=== PATIENT | male | born 2000 | race Two or more races ===

== ENCOUNTER 2020-03-25 17:42 | Emergency (ER) | payer OTHER ==
--- NOTE | 2020-03-25 18:28 | ER Document Report ---
ED Medical Screen (RME) - General Stated Complaint: ABDOMINAL PAIN Time Seen by Provider: 03/25/20 18:17 - HPI Notes: 03/25/20 18:25 19-year-old male presents to the emergency room today for evaluation of right inguinal pain that radiates to his testes on palpation that has been there for years became progressively worse after he had a physical exam today done at [facility]. Patient also is reporting right mid quadrant pain that constant and does radiate down to his testes. Denies any fevers chills, nausea, vomiting, diarrhea. Denies any bowel or bladder dysfunction, denies any pain with urination. Denies any penile drainage. Patient reports he has noticed the pain is become worse with lifting I have greeted and performed a rapid initial assessment of this patient. A comprehensive ED assessment and evaluation of the patient, analysis of test results and completion of the medical decision making process will be conducted by additional ED providers. PHYSICAL EXAMINATION: GENERAL: Well-appearing, well-nourished and in no acute distress. CV: s1, s2 regular LUNGS: No respiratory distress Musculoskeletal: Normal range of motion. R mid quadrant abd pain on palpation. R inguinal pain on palpation. NEUROLOGICAL: Normal speech, normal gait. SKIN: Warm, Dry, normal turgor, no rashes or lesions noted. Unable unable to do a exam due to lack of bed and privacy in triage. Patient will be evaluated on main side to do a exam. Ultrasound and labs pending The patient was evaluated during a global COVID-19 pandemic and that diagnosis was suspected/considered upon their initial presentation. Their evaluation, treatment and testing was consistent with current guidelines for patients who present with complaints or symptoms and may be related to COVID-19. Physical Exam - Vital signs Vitals: Temp Pulse Resp BP Pulse Ox 98.6 F 70 14 120/68 98 03/25/20 17:56 03/25/20 17:56 03/25/20 17:56 03/25/20 17:56 03/25/20 17:56 Course - Vital Signs Vital signs: Temp Pulse Resp BP Pulse Ox 98.6 F 70 14 120/68 98 03/25/20 17:56 03/25/20 17:56 03/25/20 17:56 03/25/20 17:56 03/25/20 17:56
[2020-03-25 19:14] LABS: ABSOLUTE EOSINOPHILS # (AUTO) 0.2 10^3/uL (0.0-0.6); ABSOLUTE LYMPHOCYTES (AUTO) 2.1 10^3/uL (0.5-4.7); ABSOLUTE MONOCYTES (AUTO) 0.6 10^3/uL (0.1-1.4); ABSOLUTE NEUT (AUTO) 3.4 10^3/uL (1.7-8.2); BASOPHILS % (AUTO) 0.6 % (0-2); EOSINOPHILS % (AUTO) 3.5 % (0-6); HEMATOCRIT 40.9 % (37.9-51.0); HEMOGLOBIN 14.5 g/dL (13.5-17.0); LYMPHOCYTES % (AUTO) 33.1 % (13-45); MEAN CORPUSCULAR HEMOGLOBIN 28.8 pg (27.0-33.4); MEAN CORPUSCULAR HGB CONC 35.5 g/dL (32.0-36.0); MEAN CORPUSCULAR VOLUME 81 fl (80-97); MONOCYTES % (AUTO) 9.1 % (3-13); PLATELET COUNT 237 10^3/uL (150-450); RED BLOOD COUNT 5.04 10^6/uL (4.35-5.55); RED CELL DISTRIBUTION WIDTH 13.8 % (11.5-14.0); SEGMENTED NEUTROPHILS % (AUTO) 53.7 % (42-78); TOTAL CELLS COUNTED % (AUTO) 100 %; WHITE BLOOD COUNT 6.4 10^3/uL (4.0-10.5)
[2020-03-25 19:23] LABS: APPEARANCE,URINE CLEAR; BILIRUBIN,URINE NEGATIVE (NEGATIVE); COLOR,URINE YELLOW; GLUCOSE, URINE NEGATIVE (NEGATIVE); KETONES,URINE NEGATIVE (NEGATIVE); LEUKOCYTE ESTERASE,URINE NEGATIVE (NEGATIVE); NITRITE,URINE NEGATIVE (NEGATIVE); PROTEIN,URINE NEGATIVE (NEGATIVE); URINE SPECIFIC GRAVITY 1.016; UROBILINOGEN,URINE NEGATIVE mg/dL (<2.0)
[2020-03-25 19:38] LABS: ALBUMIN 4.3 g/dL (3.5-5.0); ALKALINE PHOSPHATASE 59 U/L (38-126); ANION GAP 7 (5-19); ASPARTATE AMINO TRANSFERASE 34 U/L (17-59); BILIRUBIN,DIRECT 0.1 mg/dL (0.0-0.4); BILIRUBIN,TOTAL 0.4 mg/dL (0.2-1.3); BLOOD UREA NITROGEN 12 mg/dL (7-20); CALCIUM 9.6 mg/dL (8.4-10.2); CARBON DIOXIDE 26 mmol/L (22-30); CHLORIDE 104 mmol/L (98-107); GLUCOSE 92 mg/dL (75-110); POTASSIUM 3.9 mmol/L (3.6-5.0); TOTAL PROTEIN 7.3 g/dL (6.3-8.2)
--- NOTE | 2020-03-25 21:55 | RADIOLOGY REPORT (SQ) ---
EXAM DESCRIPTION: US ABDOMEN LIMITED, US SCROTUM COMPLETED DATE/TME: 03/25/2020 21:27 CLINICAL HISTORY: 19 years, Male, Right mid quadrant abdominal pain Findings: Right testis measures 3.7 x 2.7 x 2.2 cm. Left testis measures 3.6 x 2.6 x 1.9 cm. Vascular flow is preserved within both ovaries on color and spectral Doppler images. Epididymis are within normal limits. Borderline bilateral inguinal canal lymph nodes measuring up to 1 cm on the right and 1.2 cm on the left. No significant hydroceles. No evidence for hernia on ultrasound. IMPRESSION: No evidence for testicular torsion. No significant inguinal hernia. Borderline bilateral inguinal lymphadenopathy.
--- NOTE | 2020-03-25 22:01 | ER Document Report ---
HPI - HPI Time Seen by Provider: 03/25/20 18:17 Pain Level: 3 Notes: 19-year-old male presents to the emergency room today for evaluation of right inguinal pain that radiates to his testes on palpation that has been there for years became progressively worse after he had a physical exam today done at [facility]. Patient also is reporting right mid quadrant pain that constant and does radiate down to his testes. Denies any fevers chills, nausea, vomiting, diarrhea. Denies any bowel or bladder dysfunction, denies any pain with urination. Denies any penile drainage. Patient reports he has noticed the pain is become worse with lifting - ROS Systems Reviewed and Negative: Yes All other systems reviewed and negative - GASTROINTESTINAL Gastrointestinal: REPORTS: Abdominal Pain - R groin Past Medical History - General Information source: Patient - Social History Smoking Status: Never Smoker Frequency of alcohol use: Social Drug Abuse: None Family History: Reviewed & Not Pertinent - Medical History Medical History: Negative Surgical Hx: Negative - Immunizations Immunizations up to date: Yes Vertical Provider Document - CONSTITUTIONAL Notes: PHYSICAL EXAMINATION: GENERAL: Well-appearing, well-nourished and in no acute distress. HEAD: Atraumatic, normocephalic. EYES: Pupils equal round and reactive to light, extraocular movements intact, sclera anicteric, conjunctiva are normal. ENT: Nares patent, oropharynx clear without exudates. Moist mucous membranes. NECK: Normal range of motion, supple without lymphadenopathy LUNGS: Breath sounds clear to auscultation bilaterally and equal. No wheezes rales or rhonchi. HEART: Regular rate and rhythm without murmurs ABDOMEN: Soft, nontender, nondistended abdomen. No guarding, no rebound. No masses appreciated. Musculoskeletal: Normal range of motion, no pitting or edema. No cyanosis. NEUROLOGICAL: Cranial nerves grossly intact. Normal speech, normal gait. N ormal sensory, motor exams PSYCH: Normal mood, normal affect. SKIN: Warm, Dry, normal turgor, no rashes or lesions noted. Course - Re-evaluation Re-evalutation: 03/26/20 01:40 Patient appears well, nontoxic, abdomen soft, nontender, work-up today has been reassuring. Patient may have a small hernia but nothing that is showing up on ultrasound. He states the pain comes when he lifts heavy items. He will follow-up with his primary care provider. ED return precautions discussed, patient verbalized understanding and agreement with same. - Vital Signs Vital signs: Temp Pulse Resp BP Pulse Ox 98.6 F 70 14 120/68 98 03/25/20 17:56 03/25/20 17:56 03/25/20 17:56 03/25/20 17:56 03/25/20 17:56 - Laboratory Results Result Diagrams: 03/25/20 19:02 03/25/20 19:02 Critical Laboratory Results Reviewed: No Critical Results - Radiology Results Critical Radiology Results Reviewed: No Critical Results Discharge - Discharge Clinical Impression: Lower abdominal pain Condition: Stable Disposition: HOME, SELF-CARE Additional Instructions: Try to avoid heavy lifting since this seems to make your pain worse. Follow-up with your primary care provider. A copy of your ultrasound and lab results is enclosed. Forms: Special Work Note
[2020-03-25 23:22] VITALS: BP 117/67
[2020-03-25 23:30] LABS: CHLAM PCR NOT DETECTED (NOT DETECT)
== END 2020-03-25 22:35 | disposition home or self-care (01) ==
LOC: ER 17:42
DX: R10.31 Right lower quadrant pain (principal)
CPT/HCPCS: 36415; 76705; 76870; 80053; 81001; 85025; 87491; 87591; 99284